=== PATIENT | female | born 1970 | race Caucasian/White ===

== ENCOUNTER → 2018-05-03 | Outpatient (CLI) | payer OTHER ==
--- NOTE | 2018-05-03 15:27 | Diagnostic Imaging Report ---
INDICATION: Right breast nodule. Patient presents for six-month followup. COMPARISON: Correlation is made with prior right mammogram from 11/09/2017. TECHNIQUE: 2D and 3D unilateral right diagnostic mammography was performed with computer-aided detection (CAD) system. FINDINGS: Right breast remains heterogeneously dense, limiting the sensitivity of mammography. The lobulated nodule in the inner right breast appears stable. No new mass is seen. No malignant-appearing microcalcifications are identified. The right axilla is unremarkable. IMPRESSION: Stable right breast nodule. Followup ultrasound is recommended and will be performed today. ACR BI-RADS Category 0: Incomplete. (Needs additional imaging evaluation). Result letter will be mailed to the patient. Note: At least 10% of breast cancer is not imaged by mammography. Dictated by: Dictated on workstation # [id number]
--- NOTE | 2018-05-03 18:09 | Diagnostic Imaging Report ---
INDICATION: Right breast nodule. Patient presents for six-month follow-up. Correlation is made with prior ultrasound from 11/09/2017 and diagnostic mammogram earlier the same day. FINDINGS: Circumscribed hypoechoic mass at the 2 o'clock location of the right breast 7 cm from the nipple is again seen measuring 10 mm x 7 mm x 8 mm, stable when compared with prior exam. No definite internal vascularity is seen. No additional mass is seen. IMPRESSION: Stable right breast hypoechoic nodule at 2 o'clock location 7 cm from the nipple. Additional six-month follow-up mammogram and ultrasound is recommended to confirm stability. ACR BI-RADS Category 3: Probably benign findings. Dictated by: Dictated on workstation # [id number]
== END ==
LOC: RAD 13:36
PROVIDERS: ATTEND Nurse Practitioner Family
DX: N63.12 Unspecified lump in the right breast, upper inner quadrant (principal)

== ENCOUNTER → 2019-02-09 | Outpatient (CLI) | payer OTHER ==
--- NOTE | 2019-02-09 17:43 | Diagnostic Imaging Report ---
INDICATION: Six-month followup right breast nodule. COMPARISON: Correlation is made with prior mammogram from 11/09/2017. EXAMINATION: 2D and 3D bilateral diagnostic mammography was performed with CAD. 3D tomographic images were obtained and reviewed. The current study was also evaluated with a Computer Aided Detection (CAD) system. FINDINGS: Both breasts remain heterogeneously dense, limiting the sensitivity of mammography. Circumscribed nodule in the medial aspect of the right breast, posterior depth, appears stable. No new mass or malignant appearing microcalcifications are seen. Axillae are unremarkable. IMPRESSION: Stable lobulated nodule in medial right breast. Followup ultrasound is scheduled for today as well. ACR BI-RADS Category 0: Incomplete. (Needs additional imaging evaluation). Result letter will be mailed to the patient. Note: At least 10% of breast cancer is not imaged by mammography. Dictated on workstation # [id number]
--- NOTE | 2019-02-09 18:39 | Diagnostic Imaging Report ---
INDICATION: Six-month followup of right breast nodule. COMPARISON: Correlation is made with diagnostic mammogram earlier the same day as well as prior ultrasounds and mammograms dating back to 11/09/2017. EXAMINATION: Sonographic interrogation of the upper and inner right breast was performed. FINDINGS: Previously noted hypoechoic nodule at the 2 o'clock location 7 cm from the nipple, is again noted. This measures 10 mm x 6 mm x 9 mm, unchanged from prior exam. No internal vascularity is seen. No new mass is identified. IMPRESSION: Stable right breast hypoechoic nodule at the 2 o'clock location, 7 cm from the nipple. This now demonstrates approximately 15 months of stability. Additional followup in 6 months is recommended to show continued stability. ACR BI-RADS Category 3: Probably benign findings. Result letter will be mailed to the patient. Note: At least 10% of breast cancer is not imaged by mammography. Dictated on workstation # [id number]
== END ==
LOC: RAD 12:58
PROVIDERS: ATTEND Nurse Practitioner Family
DX: N63.12 Unspecified lump in the right breast, upper inner quadrant (principal)
CPT/HCPCS: 77066